=== PATIENT | female | born 1990 | race Caucasian/White ===

== ENCOUNTER 2018-11-08 11:09 | Emergency (ER) | payer OTHER ==
[~2018-11-08] VITALS: Ht 170.2 cm; Wt 83.9 kg
[2018-11-08 12:16] VITALS: BP 133/62
== END 2018-11-08 12:16 | disposition home or self-care (01) ==
LOC: M.ERS 11:09
DX: R19.5 Other fecal abnormalities (principal); F17.200 Nicotine dependence, unspecified, uncomplicated; M35.00 Sjogren syndrome, unspecified; Z88.4 Allergy status to anesthetic agent; Z88.5 Allergy status to narcotic agent